=== PATIENT | male | born 1960 | race Caucasian/White ===

== ENCOUNTER 2018-06-07 16:19 | Emergency (ER) | payer BC ==
[2018-06-07 20:51] LABS: ADD UMIC NO; UR ASCORBIC ACID NEGATIVE (NEGATIVE); UR BILIRUBIN (Dip) NEGATIVE (NEGATIVE); UR BLOOD (Dip) NEGATIVE (NEGATIVE); UR CLARITY CLEAR (CLEAR); UR COLOR YELLOW (YELLOW); UR GLUCOSE (Dip) NEGATIVE (NEGATIVE); UR KETONES (Dip) NEGATIVE (NEGATIVE); UR LEUKOCYTE ESTERASE (Dip) NEGATIVE Leu/ul (NEGATIVE); UR NITRITE (Dip) NEGATIVE (NEGATIVE); UR SPECIFIC GRAVITY (Dip) 1.016 (1.003-1.030); UR TOTAL PROTEIN (Dip) NEGATIVE (NEGATIVE); UR UROBILINOGEN (Dip) NEGATIVE (NEGATIVE)
[2018-06-07] MEDS: IBUPROFEN 600 MG TAB PO (20:59)
== END 2018-06-07 21:31 | disposition home or self-care (01) ==
LOC: FTE 16:19
DX: R07.81 Pleurodynia (principal); E66.9 Obesity, unspecified; Z68.38 Body mass index [BMI] 38.0-38.9, adult; Z79.82 Long term (current) use of aspirin; Z87.891 Personal history of nicotine dependence
CPT/HCPCS: 71045; 81003; 93005; 99285-25

== ENCOUNTER 2018-09-18 06:44 | Day surgery (SDC) | payer BC ==
[2018-09-18] MEDS: FAMOTIDINE 20 MG TAB PO (06:00)
[2018-09-18] MEDS: DIAZEPAM 5 MG TAB PO (06:00)
[2018-09-18] MEDS: DIPHENHYDRAMINE 50 MG CAP PO (06:00)
[~2018-09-18 06:44] MED LIST: SOD CHLORIDE 0.45% 1,000 ML IV
[2018-09-18 07:48] LABS: ADD MAN DIFF? NO
[2018-09-18 07:52] LABS: WHITE BLOOD COUNT 5.5 10^3/ul (4.8-10.8)
[2018-09-18 07:52] LABS: BASOPHILS % 0.4 % (0.0-2.0); EOSINOPHILS # 0.2 10^3/ul (0.0-0.5); EOSINOPHILS % 3.3 % (0.0-7.0); HEMATOCRIT 43.5 % (42.0-52.0); LYMPHOCYTES # 1.8 10^3/ul (0.8-2.9); LYMPHOCYTES % 33.2 % (15.0-51.0); MEAN CORPUSCULAR HEMOGLOBIN 29.6 pg (29.0-33.0); MEAN CORPUSCULAR HGB CONC 32.2 g/dl (32.0-37.0); MEAN PLATELET VOLUME 12.3 fl (7.4-10.4); MONOCYTE # 0.4 10^3/ul (0.3-0.9); MONOCYTES % 8.1 % (0.0-11.0); NEUTROPHILS % 54.6 % (39.0-77.0); PLATELET COUNT 135 10^3/UL (140-415); RED BLOOD COUNT 4.73 10^6/ul (4.70-6.10); RED CELL DISTRIBUTION WIDTH 13.9 % (11.5-14.5)
[2018-09-18 08:12] LABS: ANION GAP 8 (5-13); BLOOD UREA NITROGEN 20 mg/dl (7-20); CALCIUM 8.6 mg/dl (8.4-10.2); CARBON DIOXIDE 30 mmol/L (21-31); CHLORIDE 105 mmol/L (97-110); CHOL/HDL RATIO 4.1 RATIO; CHOLESTEROL 153 mg/dl (100-200); CREATININE 1.23 mg/dl (0.61-1.24); Estimated GFR > 60 mL/min (>60); GLUCOSE 99 mg/dl (70-220); HDL CHOLESTEROL 37 mg/dl (30-78); INR 1.01; LDL CHOLESTEROL,CALCULATED 99 mg/dl; POTASSIUM 4.1 mmol/L (3.5-5.1); PROTIME 13.4 Sec (11.9-14.9); SODIUM 143 mmol/L (135-144); TRIGLYCERIDES 85 mg/dl (0-149)
[2018-09-18 08:13] LABS: PARTIAL THROMBOPLASTIN TIME 29.8 Sec (23.0-35.0)
[2018-09-18] MEDS ORDERED: IODIXANOL LOCM 100 ML BTL ×2 (08:55→10:36)
[2018-09-18] MEDS ORDERED: MIDAZOLAM 1 MG/ML 2 ML INJ (08:55)
[2018-09-18] MEDS ORDERED: FENTAnyl 50 MCG/ML VIAL (08:55)
[2018-09-18] MEDS ORDERED: LIDOCAINE 2% (MDV) 20 ML INJ (08:55)
[2018-09-18] MEDS ORDERED: IOHEXOL 350MG/ML 50 ML BTL (10:36)
[2018-09-18] MEDS ORDERED: BIVALIRUDIN 250MG /NS 50 ML 50 ML IVPB (10:36)
[2018-09-18] MEDS ORDERED: CLOPIDOGREL 300 MG TAB (10:44)
[2018-09-18] MEDS ORDERED: ASPIRIN 325 MG TAB (10:44)
[2018-09-18] MEDS ORDERED: ACETAMINOPHEN 325 MG TAB PO (11:00)
[2018-09-18] MEDS ORDERED: ZOLPIDEM 5 MG TAB PO (11:00)
[2018-09-18] MEDS: SOD CHLORIDE 0.9% 1,000 ML IV (11:23)
[2018-09-18] MEDS: OXYCODONE/ACETAMINOPHEN (5/325) TAB PO ×2 (15:45→20:40)
[2018-09-18] MEDS: ATORVASTATIN 40 MG TAB PO (20:39)
[2018-09-18] MEDS: RANITIDINE 150 MG TAB PO (20:41)
[2018-09-18] MEDS: BISACODYL (EC) 5 MG TAB PO (22:17)
[2018-09-18] MEDS: SENNA TAB PO (22:17)
[2018-09-19] MEDS: OXYCODONE/ACETAMINOPHEN (5/325) TAB PO (03:59)
[2018-09-19 07:50] LABS: ADD MAN DIFF? NO
[2018-09-19 07:52] LABS: BASOPHILS % 0.3 % (0.0-2.0); EOSINOPHILS # 0.2 10^3/ul (0.0-0.5); EOSINOPHILS % 2.5 % (0.0-7.0); HEMATOCRIT 45.8 % (42.0-52.0); HEMOGLOBIN 14.6 g/dl (14.0-18.0); LYMPHOCYTES % 31.4 % (15.0-51.0); MEAN CORPUSCULAR HEMOGLOBIN 29.9 pg (29.0-33.0); MEAN CORPUSCULAR HGB CONC 31.9 g/dl (32.0-37.0); MEAN CORPUSCULAR VOLUME 93.7 fl (82.0-101.0); MEAN PLATELET VOLUME 12.6 fl (7.4-10.4); MONOCYTE # 0.4 10^3/ul (0.3-0.9); MONOCYTES % 6.5 % (0.0-11.0); NEUTROPHIL # 3.7 10^3/ul (1.6-7.5); NEUTROPHILS % 58.8 % (39.0-77.0); PLATELET COUNT 129 10^3/UL (140-415); RED BLOOD COUNT 4.89 10^6/ul (4.70-6.10); RED CELL DISTRIBUTION WIDTH 14.1 % (11.5-14.5)
[2018-09-19 07:52] LABS: WHITE BLOOD COUNT 6.3 10^3/ul (4.8-10.8)
[2018-09-19 08:17] LABS: ANION GAP 8 (5-13); BLOOD UREA NITROGEN 19 mg/dl (7-20); CALCIUM 9.2 mg/dl (8.4-10.2); CARBON DIOXIDE 30 mmol/L (21-31); CHLORIDE 108 mmol/L (97-110); CREATININE 1.06 mg/dl (0.61-1.24); Estimated GFR > 60 mL/min (>60); GLUCOSE 99 mg/dl (70-220); POTASSIUM 4.6 mmol/L (3.5-5.1); SODIUM 146 mmol/L (135-144)
[2018-09-19] MEDS: LOSARTAN 25 MG TAB PO (08:40)
[2018-09-19] MEDS: CLOPIDOGREL 75 MG TAB PO (08:40)
[2018-09-19] MEDS: SENNA TAB PO (08:40)
[2018-09-19] MEDS: FENOFIBRATE 145 MG TAB PO (08:40)
[2018-09-19] MEDS: FUROSEMIDE 20 MG TAB PO (08:41)
[2018-09-19] MEDS: RANITIDINE 150 MG TAB PO ×2 (08:41→09:00)
[2018-09-19] MEDS: FINASTERIDE 5 MG TAB PO (08:41)
[2018-09-19] MEDS: ASPIRIN (EC) 81 MG TAB PO (08:41)
[2018-09-19] MEDS: RANOLAZINE (SR) 500 MG TAB PO (10:30)
[2018-09-19] MEDS: BISACODYL (EC) 5 MG TAB PO (10:30)
[2018-09-19] MEDS: NA PHOSPHATE/BIPHOS 133 ML ENEMA PR (14:20)
== END 2018-09-19 15:00 | disposition home or self-care (01) ==
LOC: SDS 06:44 → TEL 14:45
DX: I25.10 Atherosclerotic heart disease of native coronary artery without angina pectoris (principal); I10 Essential (primary) hypertension; E78.5 Hyperlipidemia, unspecified
CPT/HCPCS: 71045; 80048; 80061; 85025; 85610; 85730; 93005; 93458